=== PATIENT | male | born 1980 | race Caucasian/White ===

== ENCOUNTER → 2016-08-10 | Outpatient (CLI) | payer BC ==
--- NOTE | 2016-08-10 20:53 | MR ---
EXAMINATION TYPE: MR thoracic spine wo con DATE OF EXAM: 08/10/2016 6:47 PM COMPARISON: NONE HISTORY: Pain in thoracic spine for past two, no trauma Standard multiplanar, multisequence MRI departmental protocol Multiplanar, multisequence images of the thoracic spine were acquired. Diffusion weighted imaging was performed. FINDINGS: Alignment is anatomic. There is disc desiccation at T7-T8, T8-T9 and T9-T10. At T7-T8 there is a right paracentral focal disc herniation which results in anterior compression of the spinal cord. Neural foramina patent. At T8-9 there is a central broad-based disc herniation. This abuts the anterior margin of the spinal cord. Mass effect from the thecal sac does also result in a degree of mass effect on the spinal cord. At T11-T12 there is a right paracentral and lateral disc bulge with right-sided foraminal encroachmen t. No Canal stenosis. At T12-L1 findings are suspicious for left paracentral disc herniation with mass effect on the thecal sac but no spinal cord contact. Mild left-sided foraminal encroachment. Remaining levels demonstrate no evidence of disc herniation or canal stenosis. No abnormal signal within the spinal cord. No compression deformities. IMPRESSION: 1. Focal right paracentral disc herniation T7-T8 with anterior compression of the spinal cord. No ev idence to suggest myelitis. 2. Left paracentral disc herniation T12-L1 with mild thecal sac compression but no spinal cord contac t. 3. Right lateral and paracentral disc bulging T11-T12 with mild right-sided foraminal encroachment. 4. Central disc herniation T8-T9 which abuts the anterior margin of the spinal cord.
== END | disposition home or self-care (01) ==
LOC: RADMRIMAIN 17:38
PROVIDERS: ATTEND Psychiatry & Neurology Neurology
DX: M54.6 Pain in thoracic spine (principal); M51.24 Other intervertebral disc displacement, thoracic region; G95.20 Unspecified cord compression; M51.26 Other intervertebral disc displacement, lumbar region
CPT/HCPCS: 72146

== ENCOUNTER → 2017-10-04 | Outpatient (CLI) | payer BC ==
--- NOTE | 2017-10-07 13:42 | MR ---
EXAMINATION TYPE: MR thoracic spine wo con DATE OF EXAM: 10/04/2017 COMPARISON: 08/10/2016 MRI of the thoracic spine HISTORY: Back Pain x1 year TECHNIQUE: Multiplanar, multisequence images of the thoracic spine were acquired without intravenous contrast. FINDINGS: The vertebral bodies of the thoracic spine maintain normal vertebral body heights and alignment. Thor acic cord maintains normal signal throughout. No epidural fluid collection is seen. Bone marrow signa l is within normal limits. Small Schmorl's nodes are noted as well as degenerative endplate changes a nd multilevel facet arthropathy. At T7-T8 is a similar appearing small right paracentral disc herniation that creates a very mild spin al canal stenosis narrowing the ventral subarachnoid space as seen on the prior of 2016. No neural fo raminal narrowing. Small broad-based disc herniation is also similar to the prior exam at T8-T9. This creates very mild spinal canal stenosis. No neural foraminal narrowing. Disc desiccation is seen at T9-T10 and Schmorl's node formation of the superior endplate of T10. No s ignificant spinal canal stenosis or neural foraminal narrowing. At T11-T12 there remains a small right paracentral and foraminal disc herniation creating moderate ri ght neural foraminal narrowing. No left neural foraminal narrowing or spinal canal stenosis. At T12-L1 there is a small left paracentral broad-based disc bulge without spinal canal stenosis or n eural foraminal narrowing. IMPRESSION: Overall similar exam in comparison to the prior 08/10/2016 with small right paracentral disc herniation at T7-T8 creating mild spinal canal stenosis, small right paracentral disc herniation at T11-T12 cre ating moderate right neuroforaminal narrowing, small broad-based disc bulge at T12-L1, and small broa d-based disc herniation at T8-T9 creating very mild spinal canal stenosis. No new disc herniations an d no significant progression.
== END | disposition home or self-care (01) ==
LOC: RADMRIMAIN 19:44
PROVIDERS: ATTEND Neurological Surgery
DX: M48.04 Spinal stenosis, thoracic region (principal); M99.72 Connective tissue and disc stenosis of intervertebral foramina of thoracic region; M51.25 Other intervertebral disc displacement, thoracolumbar region
CPT/HCPCS: 72146

== ENCOUNTER 2017-12-21 07:48 | Day surgery (SDC) | payer BC ==
[~2017-12-21 07:48] MED LIST: PREMYELOGRAM MEDICATION REVIEW 1 EACH MISC PO NR
[2017-12-21 08:24] VITALS: TEMP 97.6
[2017-12-21] MEDS ORDERED: DIAZEPAM 5 MG TAB PO STA (08:27)
--- NOTE | 2017-12-21 10:25 | FL ---
EXAMINATION TYPE: FL myelogram thoracic DATE OF EXAM: 12/21/2017 9:46 AM HISTORY: Thoracic back pain after trauma TECHNIQUE: 44 seconds of fluoroscopy time was utilized with 1 image saved. Informed consent was obtained and all the patient's questions were answered. Preprocedural timeout wa s performed. The L4-L5 level was localized under fluoroscopy. Standard sterile technique was utilize d as well as appropriate local anesthesia 1% Lidocaine (7 cc). Spinal needle was introduced into the thecal sac under fluoroscopic guidance and 9 mls of Isovue-M 300 was injected. The patient tolerated the procedure well and left the department in stable condition. CT myelography is to follow. IMPRESSION: Successful myelography at the lumbar spine level for subsequent CT thorax.
[2017-12-21 10:49] VITALS: PULSE 87
--- NOTE | 2017-12-21 11:20 | CT ---
EXAMINATION TYPE: CT thoracic spine w con DATE OF EXAM: 12/21/2017 COMPARISON: MRI dated 10/04/2017 of the thoracic spine HISTORY: Thoracic back pain CT DLP: 1067.1 mGycm Automated exposure control for dose reduction was used. CONTRAST: Performed after the intrathecal administration of 9 cc of Omnipaque 300 M. FINDINGS: Although contrast was seen in the thoracic spine on fluoroscopy contrast remains within the lumbosacr al spine on subsequent imaging despite rotating the patient and placing the patient in Trendelenburg. However on evaluation of the images a small amount of thoracic contrast is identified. Vertebral bodies of the thoracic spine demonstrate normal vertebral body heights and alignment. The u pper thoracic disc spaces appear unremarkable without spinal canal stenosis or neuroforaminal narrowi ng. There is a left eccentric broad-based disc bulge seen at C6-C7 without spinal canal stenosis or neura l foraminal narrowing. At T7-T8 there is a similar appearing right small paracentral disc herniation creating very mild spin al canal stenosis and very mild neural foraminal narrowing. At T11-T12 the previously seen small right paracentral disc herniation and foraminal disc herniation creating moderate right neural foraminal narrowing is less conspicuous. At T12-L1 there is a broad-based disc bulge without spinal canal stenosis or neural foraminal narrowi ng. At L1-L2 there is a very small broad-based disc bulge without spinal canal stenosis or neuroforaminal narrowing. Similarly at L2-L3 and L3-L4 there are small broad-based disc bulge resulting in very mild neural for aminal narrowing without spinal canal stenosis. L5-S1 demonstrates no significant neural foraminal na rrowing or spinal canal stenosis. IMPRESSION: 1. Similar-appearing small right paracentral disc herniation at T7-T8 creating very mild spinal canal stenosis and very mild neural foraminal narrowing. 2. Left eccentric broad-based disc bulge at C6-C7 without spinal canal stenosis or neural foraminal n arrowing. 3. The previously seen T11-T12 small right paracentral disc herniation creating moderate right neural foraminal narrowing is redemonstrated but less conspicuous than on the prior MR dated 10/04/2017. 4. Mild multilevel degenerative disc disease throughout the lumbar spine without spinal canal stenosi s.
[2017-12-21 12:05] VITALS: RESP 18
[2017-12-21 14:04] VITALS: BP 115/77
== END 2017-12-21 13:55 | disposition home or self-care (01) ==
LOC: RADPROMAIN 07:48
PROVIDERS: ATTEND Neurological Surgery
DX: M51.24 Other intervertebral disc displacement, thoracic region (principal); M48.04 Spinal stenosis, thoracic region; M50.223 Other cervical disc displacement at C6-C7 level; M51.36 Other intervertebral disc degeneration, lumbar region
CPT/HCPCS: 62303; 72129; J2001; Q9967

== ENCOUNTER 2017-12-22 06:46 | Emergency (ER) | payer BC ==
[2017-12-22] MEDS ORDERED: SODIUM CHLORIDE 0.9% 1,000 ML IV STA (07:07)
[2017-12-22] MEDS ORDERED: METOCLOPRAMIDE 5 MG/ML 2 ML VIAL IVP STA (07:13)
--- NOTE | 2017-12-22 07:17 | ED ---
General Adult HPI - General Chief complaint: Headache Stated complaint: headache Source: patient, family Mode of arrival: ambulatory Limitations: no limitations - History of Present Illness Initial comments: Dictation was produced using [employer] dictation software. please excuse any grammatical, word or spelling errors. Chief Complaint: 37-year-old male past medical history of chronic back pain presents with headache after myelogram yesterday. History of Present Illness: Patient states that yesterday he had a myelogram procedure performed. After the procedure he felt relatively well. He went home however began to have symptoms of headache. Patient states that his headache is worse with sitting up and alleviated with lying down. He is also having some nausea and vomiting. Patient was counseled yesterday told that he may need a patch if he develops worsening headache. Denies any constitutional symptoms. The ROS documented in this emergency department record has been reviewed and confirmed by me. Those systems with pertinent positive or negative responses have been documented in the HPI. All other systems are other negative and/or noncontributory. - Related Data Home Medications Medication Instructions Recorded Confirmed traMADol HCL [Ultram] 50 mg PO Q4HR PRN 12/17/17 12/22/17 Allergies Allergy/AdvReac Type Severity Reaction Status Date / Time No Known Allergies Allergy Verified 12/22/17 06:58 Review of Systems ROS Statement: Those systems with pertinent positive or pertinent negative responses have been documented in the HPI. ROS Other: All systems not noted in ROS Statement are negative. Past Medical History Past Medical History: No Reported History Additional Past Medical History / Comment(s): mid back pain x2 years. only has had MRI and phyiscal therapy for back thus far. History of Any Multi-Drug Resistant Organisms: None Reported Past Surgical History: No Surgical Hx Reported Additional Past Surgical History / Comment(s): PICC line placed for dental abscess -2007 Additional Past Anesthesia/Blood Transfusion Reaction / Comment(s): never had Past Psychological History: No Psychological Hx Reported Smoking Status: Current every day smoker Past Alcohol Use History: None Reported Past Drug Use History: None Reported - Past Family History Father Family Medical History: No Reported History General Exam - General Exam Comments Initial Comments: PHYSICAL EXAM: General Impression: Alert and oriented x3, acute distress secondary to pain HEENT: Normocephalic atraumatic, extra-ocular movements intact, pupils equal and reactive to light bilaterally, mucous membranes moist. Cardiovascular: Heart regular rate and rhythm, S1&S2 audible, no murmurs, rubs or gallops Chest: Lungs clear to auscultation bilaterally, no rhonchi, no wheeze, no rales Abdomen: Bowel sounds present, abdomen soft, non-tender, non-distended, no organomegaly Musculoskeletal: Pulses present and equal in all extremities, no peripheral edema Motor: Power 5/5 bilaterally, no focal deficits noted Neurological: CN II-XII grossly intact, no focal motor or sensory deficits noted Skin: Intact with no visualized rashes, lower back appears atraumatic, no mass or signs of infection to the lumbar puncture site Psych: Normal affect and mood Limitations: no limitations Course Vital Signs 12/22/17 12/22/17 12/22/17 06:55 07:53 07:54 Temperature 97.7 F Pulse Rate 62 57 L Respiratory 20 16 Rate Blood Pressure 112/67 O2 Sat by Pulse 100 100 Oximetry Medical Decision Making - Medical Decision Making ED course: 37-year-old male who presents with clinical presentation consistent with post-lumbar puncture headache. Vital signs upon arrival are within acceptable limits. Physical examination shows male in acute distress. No neurologic deficits. Physical examination is otherwise nonfocal. Patient was given intravenous fluids, Tylenol and Reglan. Anesthesia was consulted to perform blood patch. She was obtained from patient. Reports that there was some difficulties with the procedure yesterday with injecting enough contrast to get adequate films of the thoracic area. It is highly likely that patient's symptoms are secondary to post lumbar puncture. Anesthesia performed blood patch at bedside. Patient tolerated procedure well. Consultation on post- lumbar puncture headache. He is advised to lie flat and slowly increase his activity levels. Advised to take Tylenol at home for when necessary pain symptoms. Instructed to follow-up with primary care physician upon discharge. he is understandable and agreeable. Disposition Clinical Impression: Spinal puncture headache Disposition: HOME SELF-CARE Condition: Fair Instructions: Acute Headache (ED) Is patient prescribed a controlled substance at d/c from ED?: No Referrals: None,Stated [Primary Care Provider] - 1-2 days Time of Disposition: 08:57
[2017-12-22] MEDS ORDERED: ACETAMINOPHEN TAB 500 MG TAB PO STA (07:36)
[2017-12-22 07:53] VITALS: RESP 16
--- NOTE | 2017-12-22 08:44 | P.PAINCN ---
History of Present Illness - Reason for Consult Consult date: 12/22/17 - History of Present Illness 37-year-old male who presents to the emergency department at [facility] with complaints of a positional headache. 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 Patient states over the course of 24 hours she's noticed headache that was worsened with upright position and improved with lying flat, also states that he had some nausea, and 2 episodes of vomiting. Patient also admits to having some nuchal rigidity. With regards to the headache he describes it as a bifrontal headache significant only worst with sitting up and improved somewhat stimulating when lying flat. I discussed with the patient potential of doing an epidural blood patch, I discussed the risks and benefits of doing the procedure the patient agreed to proceed with doing so over conservative therapy. Review of systems: 14 point review of systems negative except as mentioned in HPI Physical exam: General: Mildly distressed in the upright position HEENT: Normocephalic atraumatic Cardiovascular: Regular rate and rhythm, no murmurs Respiratory: Nonlabored respirations, no wheezing Muscular skeletal: No motor deficits in either upper or lower extremities. Neurological: No focal deficits appreciated, no sensory deficits Psychiatric: Normal mood and affect Assessment: 1. Posterior puncture headache Plan: 1. Epidural blood patch, risks and benefits explained which include infection, bleeding, and accidental dural puncture, consent signed. All questions answered. Past Medical History Past Medical History: No Reported History Additional Past Medical History / Comment(s): mid back pain x2 years. only has had MRI and phyiscal therapy for back thus far. History of Any Multi-Drug Resistant Organisms: None Reported Past Surgical History: No Surgical Hx Reported Additional Past Surgical History / Comment(s): PICC line placed for dental abscess -2007 Additional Past Anesthesia/Blood Transfusion Reaction / Comm: never had Past Psychological History: No Psychological Hx Reported Smoking Status: Current every day smoker Past Alcohol Use History: None Reported Past Drug Use History: None Reported - Past Family History Father Family Medical History: No Reported History Medications and Allergies Home Medications Medication Instructions Recorded Confirmed Type traMADol HCL [Ultram] 50 mg PO Q4HR PRN 12/17/17 12/22/17 History Allergies Allergy/AdvReac Type Severity Reaction Status Date / Time No Known Allergies Allergy Verified 12/22/17 06:58 Physical Exam Vitals: Vital Signs Temp Pulse Resp BP Pulse Ox 12/22/17 07:54 112/67 12/22/17 07:53 57 L 16 100 12/22/17 06:55 97.7 F 62 20 100 Intake and Output 12/21/17 12/22/17 12/22/17 22:59 06:59 14:59 Other: Weight 74.843 kg PQRS Measure Charge Sheet PQRS Narrative: Smoking Status Current every day smoker Blood Pressure 112/67 Pain Intensity 10 Scale Used Numeric (1 - 10) Home Medications: Ambulatory Orders traMADol HCL [Ultram] 50 mg PO Q4HR PRN 12/17/17
[2017-12-22 09:16] VITALS: BP 115/70; PULSE 78; TEMP 97.8
== END 2017-12-22 09:14 | disposition home or self-care (01) ==
LOC: EC 06:46
DX: G97.1 Other reaction to spinal and lumbar puncture (principal); F17.200 Nicotine dependence, unspecified, uncomplicated; Z87.39 Personal history of other diseases of the musculoskeletal system and connective tissue
CPT/HCPCS: 99284; 62273; 96374; 96361; J2765

== ENCOUNTER 2017-12-23 15:49 | Emergency (ER) | payer BC ==
[2017-12-23] MEDS ORDERED: LIDOCAINE 2% INJ 20 MG/ML (20 ML MDV) IV STA (16:11)
[2017-12-23] MEDS ORDERED: SODIUM CHLORIDE 0.9% 1,000 ML IV ONE (16:15)
[2017-12-23] MEDS ORDERED: ONDANSETRON 4 MG/2 ML VIAL IVP STA ×2 (16:15→17:50)
[2017-12-23 16:40] LABS: Basophils % (A) 0 %; Eosinophils # (A) 0.1 k/uL (0-0.7); Eosinophils % (A) 1 %; HCT 46.5 % (39.0-53.0); HGB 15.8 gm/dL (13.0-17.5); Lymphocytes # (A) 1.3 k/uL (1.0-4.8); Lymphocytes % (A) 18 %; MCV 91.1 fL (80.0-100.0); Mean Platelet Volume 6.8; Monocytes # (A) 0.5 k/uL (0-1.0); Monocytes % (A) 7 %; Neutrophils # (A) 5.4 k/uL (1.3-7.7); Neutrophils % (A) 73 %; Platelet Count 366 k/uL (150-450); RBC 5.11 m/uL (4.30-5.90); RDW 12.5 % (11.5-15.5); WBC 7.4 k/uL (3.8-10.6)
[2017-12-23 16:46] LABS: INR 1.1 (<1.2); Prothrombin Time 10.8 sec (9.0-12.0)
[2017-12-23 16:58] LABS: Anion Gap 11 mmol/L; Blood Urea Nitrogen 7 mg/dL (9-20); Calcium 10.3 mg/dL (8.4-10.2); Carbon Dioxide 20 mmol/L (22-30); Chloride 111 mmol/L (98-107); Glucose 110 mg/dL (74-99); Sodium 142 mmol/L (137-145)
[2017-12-23] MEDS ORDERED: .ACETAMINOPHEN IV (PEDS) 1,000 MG in EMPTY BAG 1 BAG IV STA (17:42)
[2017-12-23 19:09] VITALS: RESP 18
[2017-12-23 19:55] VITALS: BP 123/77; PULSE 65; TEMP 98.5
[2017-12-23] MEDS ORDERED: ONDANSETRON 4 MG ODT STARTER PACK 2 TAB BTL PO STA (19:56)
--- NOTE | 2017-12-23 19:58 | ED ---
General Adult HPI - General Chief complaint: Headache Stated complaint: Vomiting Time Seen by Provider: 12/23/17 15:56 Source: patient Mode of arrival: ambulatory Limitations: no limitations - History of Present Illness Initial comments: 37-year-old male presenting with headache and vomiting. Patient states that he had a CT myelogram done and after that began to develop severe headache and vomiting. He was seen in the emergency department on 12/22 and had a blood patch placed by pain management. He had improvement of his symptoms for 4 hours but then they returned. He is been unable to tolerate anything by mouth at home secondary to the vomiting and severe headache. He is experiencing a generalized pressure-like headache that radiates down to the lower part of the spine. He denies any focal weakness or numbness. Denies any fevers or chills. Patient states that the myelogram for a possible spinal cyst. - Related Data Home Medications Medication Instructions Recorded Confirmed traMADol HCL [Ultram] 50 mg PO Q4HR PRN 12/17/17 12/22/17 Allergies Allergy/AdvReac Type Severity Reaction Status Date / Time No Known Allergies Allergy Verified 12/22/17 06:58 Review of Systems ROS Statement: Those systems with pertinent positive or pertinent negative responses have been documented in the HPI. Review of Systems Constitutional: Denies fever, chills Eyes: Denies change in vision, Denies pain Ears, nose, mouth, throat: Positive headaches, Denies sore throat Cardiovascular: Denies chest pain. Denies palpitations Respiratory: Denies shortness of breath, Denies cough Gastrointestinal: Denies abdominal pain. Positive nausea, vomiting. negative diarrhea. Genitourinary: Denies hematuria, Denies infections Musculoskeletal: Denies pain, Denies swelling Integumentary: Denies rash Neurological: Positive headache, focal weakness, focal numbness Psychiatric: Denies anxiety, Denies depression Hematologic/Lymphatic: Denies easy bleeding or bruising ROS Other: All systems not noted in ROS Statement are negative. Past Medical History Past Medical History: No Reported History Additional Past Medical History / Comment(s): mid back pain x2 years. only has had MRI and phyiscal therapy for back thus far. History of Any Multi-Drug Resistant Organisms: None Reported Past Surgical History: No Surgical Hx Reported Additional Past Surgical History / Comment(s): PICC line placed for dental abscess -2007 Additional Past Anesthesia/Blood Transfusion Reaction / Comment(s): never had Past Psychological History: No Psychological Hx Reported Smoking Status: Current every day smoker Past Alcohol Use History: None Reported Past Drug Use History: None Reported - Past Family History Father Family Medical History: No Reported History General Exam - General Exam Comments Initial Comments: General: Awake, alert, appears uncomfortable HENT: Normocephalic. Atraumatic. Eyes: PERRL. EOMI. No scleral icterus. No injected conjunctiva Neck: Full ROM Chest/Lungs: Clear to auscultation bilaterally. No wheezing, rhonchi, or rales Cardiac: Regular rate, rhythm. No murmurs or rubs Abdomen/GI: Soft, nontender, nondistended. No rebound, guarding, or rigidity. Musculoskeletal: Full ROM Skin: Warm, dry, intact Neurologic: A/Ox3, no weakness, no sensory deficit, no abnormal gait, no coordination deficit. C5 through T1 intact and symmetric bilaterally. L3 through S1 intact and symmetric bilaterally. LP and blood patch areas non- erythematous with no drainage. No midline cervical, thoracic, lumbar tenderness to palpation. Limitations: no limitations Course Vital Signs 12/23/17 12/23/17 12/23/17 15:51 19:02 19:49 Temperature 97.6 F 98.5 F Pulse Rate 76 62 65 Respiratory 20 18 18 Rate Blood Pressure 109/75 119/73 123/77 O2 Sat by Pulse 100 100 100 Oximetry Medical Decision Making - Medical Decision Making 37-year-old male presenting with headache and nausea and vomiting. Initial exam the patient appears uncomfortable and is actively vomiting. Patient had a blood patch placed yesterday. Patient states these symptoms are similar to the ones he had prior to the blood patch being placed. He sphenopalatine nerve block was done with atomized 2% lidocaine. The patient had some improvement but shortly thereafter had another episode of vomiting. His nausea was controlled with department was Zofran after that. He was given IV Tylenol with improvement of his headache decreased to a 4. The tolerate ice chips and crackers on the department. Patient felt comfortable enough to be discharged home. He was sent with a starter pack for Zofran. Patient stated he has tramadol at home but he was told not to take it for 48 hours after his procedure. Discussed this with the pharmacist at this time does not appear to be any contraindication to tramadol post lumbar puncture. Patient was instructed to take a dose when he gets home to help prevent worsening of his symptoms. He was told to take Zofran as Mónica felt any signs of nausea. Instructed to maintain a bland diet with frequent small sips of fluids.No further emergent workup indicated. The patient was given return to ED instructions. They were instructed to follow up with their primary care provider. Stable for discharge at this time. - Lab Data Result diagrams: 12/23/17 10:29 12/23/17 10:29 Lab Results 12/23/17 12/23/17 12/23/17 Range/Units 10:29 10: 10:29 WBC 7.4 (3.8-10.6) k/uL RBC 5.11 (4.30-5.90) m/uL Hgb 15.8 (13.0-17.5) gm/dL Hct 46.5 (39.0-53.0) % MCV 91.1 (80.0-100.0) fL MCH 31.0 (25.0-35.0) pg MCHC 34.0 (31.0-37.0) g/dL RDW 12.5 (11.5-15.5) % Plt Count 366 (150-450) k/uL Neutrophils % 73 % Lymphocytes % 18 % Monocytes % 7 % Eosinophils % 1 % Basophils % 0 % Neutrophils # 5.4 (1.3-7.7) k/uL Lymphocytes # 1.3 (1.0-4.8) k/uL Monocytes # 0.5 (0-1.0) k/uL Eosinophils # 0.1 (0-0.7) k/uL Basophils # 0.0 (0-0.2) k/uL PT 10.8 (9.0-12.0) sec INR 1.1 (<1.2) Sodium 142 (137-145) mmol/L Potassium 4.0 (3.5-5.1) mmol/L Chloride 111 H (98-107) mmol/L Carbon Dioxide 20 L (22-30) mmol/L Anion Gap 11 mmol/L BUN 7 L (9-20) mg/dL Creatinine 0.90 (0.66-1.25) mg/dL Est GFR (CKD-EPI)AfAm >90 (>60 ml/min/1.73 sqM) Est GFR (CKD-EPI)NonAf >90 (>60 ml/min/1.73 sqM) Glucose 110 H (74-99) mg/dL Calcium 10.3 H (8.4-10.2) mg/dL Disposition Clinical Impression: Headache, post-lumbar puncture Disposition: HOME SELF-CARE Condition: Good Instructions: *Surgery [facility] - Lumbar Puncture Discharge Instructions, Acute Headache (ED) Additional Instructions: Take Tramadol when you get home. Eat small amounts of bland food tonight and take frequent small sips of fluids. Drink a caffeine beverage in the morning. Return if symptoms worsen. Is patient prescribed a controlled substance at d/c from ED?: No Referrals: Jonah Goldsmith MD [Medical Doctor] - 1-2 days
--- NOTE | 2017-12-25 06:57 | CDI ---
Dear Nadege Velázquez DO: Please do addendum the anatomical laterality for the sphenopalatine nerve block procedure. Thank you, Juliette Gomez, Eligibility Services Representative. If you have any questions, please contact [facility] [employer] [employer] at [phone]. [email or web address]
== END 2017-12-23 20:20 | disposition home or self-care (01) ==
LOC: EC 15:49
DX: G97.1 Other reaction to spinal and lumbar puncture (principal); F17.200 Nicotine dependence, unspecified, uncomplicated; Z87.39 Personal history of other diseases of the musculoskeletal system and connective tissue
CPT/HCPCS: 99284; 64505; 96365; 96375; 96376; 96361 ×2; 36415; 80048; 85025; 85610; J2001; J2405; J0131; S0119

== ENCOUNTER 2017-12-25 13:27 | Observation (INO) | payer BC ==
[2017-12-25] MEDS ORDERED: diphenhydrAMINE 50 MG/ML 1 ML VIAL IVP STA (14:04)
[2017-12-25] MEDS ORDERED: SODIUM CHLORIDE 0.9% 1,000 ML IV ONE (14:04)
[2017-12-25] MEDS ORDERED: METOCLOPRAMIDE 5 MG/ML 2 ML VIAL IVP STA (14:04)
[2017-12-25] MEDS ORDERED: KETOROLAC 30 MG/ML 1 ML VIAL IVP STA (14:04)
[2017-12-25] MEDS ORDERED: CAFFEINE-SODIUM BENZOATE 1,000 MG in SODIUM CHLORIDE 0.9% 1,000 ML IVPB ONE (14:04)
--- NOTE | 2017-12-25 14:58 | ED ---
General Adult HPI - General Chief complaint: Headache Stated complaint: Vomiting Time Seen by Provider: 12/25/17 13:52 Source: patient, family, RN notes reviewed Mode of arrival: ambulatory Limitations: no limitations - History of Present Illness Initial comments: This a 37-year-old male presents emergency Department with chief complaint of persistent headache and vomiting. Patient states that he had a myelogram performed on Sunday and a blood patch on Sunday. He states he had about 4 hours a relief. Patient states that he was seen again in emergency department for vomiting was given medications. Patient states that he has contacted here who performed the procedure along with his surgeon and PCP who referred him to the ER. Patient states that the procedure was performed here. Patient denies any fever but states that he's been having night sweats and concerned about possible infection. Patient denies any abdominal pain but states that he cannot stop vomiting. Denies any chest pain or shortness breath. Patient states this was performed secondary to ongoing issues in his thoracic spine. Patient states the headache is positional. Patient states that he only gets a slight relief when he lays on his back right side. - Related Data Home Medications Medication Instructions Recorded Confirmed traMADol HCL [Ultram] 50 mg PO Q4HR PRN 12/17/17 12/25/17 Allergies Allergy/AdvReac Type Severity Reaction Status Date / Time No Known Allergies Allergy Verified 12/25/17 13:56 Review of Systems ROS Statement: Those systems with pertinent positive or pertinent negative responses have been documented in the HPI. ROS Other: All systems not noted in ROS Statement are negative. Past Medical History Past Medical History: No Reported History Additional Past Medical History / Comment(s): mid back pain x2 years. only has had MRI and phyiscal therapy for back thus far. History of Any Multi-Drug Resistant Organisms: None Reported Past Surgical History: No Surgical Hx Reported Additional Past Surgical History / Comment(s): PICC line placed for dental abscess -2007, myleogram Additional Past Anesthesia/Blood Transfusion Reaction / Comment(s): never had Past Psychological History: No Psychological Hx Reported Smoking Status: Current every day smoker Past Alcohol Use History: None Reported Past Drug Use History: None Reported - Past Family History Father Family Medical History: No Reported History General Exam Limitations: no limitations General appearance: alert, in no apparent distress Head exam: Present: atraumatic, normocephalic, normal inspection Eye exam: Present: normal appearance, PERRL, EOMI. Absent: scleral icterus, conjunctival injection, periorbital swelling Neck exam: Present: normal inspection, full ROM. Absent: tenderness, meningismus, lymphadenopathy Respiratory exam: Present: normal lung sounds bilaterally. Absent: respiratory distress, wheezes, rales, rhonchi, stridor Cardiovascular Exam: Present: regular rate, normal rhythm, normal heart sounds. Absent: systolic murmur, diastolic murmur, rubs, gallop, clicks GI/Abdominal exam: Present: soft, normal bowel sounds. Absent: distended, tenderness, guarding, rebound, rigid Neurological exam: Present: alert, oriented X3, CN II-XII intact, reflexes normal. Absent: motor sensory deficit Course Vital Signs 12/25/17 13:32 Temperature 98.1 F Pulse Rate 69 Respiratory 18 Rate Blood Pressure 115/73 O2 Sat by Pulse 99 Oximetry Medical Decision Making - Medical Decision Making 37-year-old male presented to the emergency room for persistent headache and nausea vomiting. Patient is a recent blood patch. Patient repeat lab work is no signs of infectious causes time. Patient will be admitted for further evaluation - Lab Data Result diagrams: 12/25/17 14:30 12/25/17 14:30 Lab Results 12/25/17 12/25/17 12/25/17 Range/Units 14:30 14:30 14:30 WBC 7.1 (3.8-10.6) k/uL RBC 4.98 (4.30-5.90) m/uL Hgb 15.5 (13.0-17.5) gm/dL Hct 45.4 (39.0-53.0) % MCV 91.1 (80.0-100.0) fL MCH 31.1 (25.0-35.0) pg MCHC 34.1 (31.0-37.0) g/dL RDW 12.5 (11.5-15.5) % Plt Count 361 (150-450) k/uL Sodium 141 (137-145) mmol/L Potassium 4.1 (3.5-5.1) mmol/L Chloride 107 (98-107) mmol/L Carbon Dioxide 24 (22-30) mmol/L Anion Gap 10 mmol/L BUN 12 (9-20) mg/dL Creatinine 0.90 (0.66-1.25) mg/dL Est GFR (CKD-EPI)AfAm >90 (>60 ml/min/1.73 sqM) Est GFR (CKD-EPI)NonAf >90 (>60 ml/min/1.73 sqM) Glucose 88 (74-99) mg/dL Plasma Lactic Acid Willie 1.0 (0.7-2.0) mmol/L Calcium 10.0 (8.4-10.2) mg/dL Total Bilirubin 0.6 (0.2-1.3) mg/dL AST 23 (17-59) U/L ALT 31 (21-72) U/L Alkaline Phosphatase 42 (38-126) U/L C-Reactive Protein <5.0 (<10.0) mg/L Total Protein 6.9 (6.3-8.2) g/dL Albumin 4.3 (3.5-5.0) g/dL Disposition Clinical Impression: Intractable headache, Nausea & vomiting Disposition: ADMITTED IP TO THIS [facility] Condition: Stable Referrals: Fany Barahona MD [Primary Care Provider] - 1-2 days
[2017-12-25 15:05] LABS: ALT 31 U/L (21-72); AST 23 U/L (17-59); Albumin 4.3 g/dL (3.5-5.0); Alkaline Phosphatase 42 U/L (38-126); Anion Gap 10 mmol/L; Blood Urea Nitrogen 12 mg/dL (9-20); C Reactive Protein <5.0 mg/L (<10.0); Carbon Dioxide 24 mmol/L (22-30); Chloride 107 mmol/L (98-107); Glucose 88 mg/dL (74-99); Potassium 4.1 mmol/L (3.5-5.1); Sodium 141 mmol/L (137-145); Total Bilirubin 0.6 mg/dL (0.2-1.3); Total Protein 6.9 g/dL (6.3-8.2)
[2017-12-25 15:24] LABS: Basophils % (A) 1 %; Eosinophils # (A) 0.1 k/uL (0-0.7); Eosinophils % (A) 1 %; HCT 45.4 % (39.0-53.0); HGB 15.5 gm/dL (13.0-17.5); Lymphocytes # (A) 1.5 k/uL (1.0-4.8); Lymphocytes % (A) 21 %; MCH 31.1 pg (25.0-35.0); MCHC 34.1 g/dL (31.0-37.0); MCV 91.1 fL (80.0-100.0); Mean Platelet Volume 7.4; Monocytes # (A) 0.7 k/uL (0-1.0); Monocytes % (A) 9 %; Neutrophils # (A) 4.7 k/uL (1.3-7.7); Neutrophils % (A) 67 %; Platelet Count 361 k/uL (150-450); RBC 4.98 m/uL (4.30-5.90); RDW 12.5 % (11.5-15.5); WBC 7.1 k/uL (3.8-10.6)
[2017-12-25] MEDS ORDERED: MORPHINE SULFATE 4 MG/ML SYRINGE IV PRN (15:32)
[2017-12-25] MEDS ORDERED: ACETAMINOPHEN TAB 325 MG TAB PO PRN (15:32)
[2017-12-25] MEDS ORDERED: LORazepam 2 MG/ML INJ IV PRN (15:32)
[2017-12-25] MEDS ORDERED: HYDROcodone/APAP 5-325MG 1 EACH TAB PO PRN (15:32)
[2017-12-25] MEDS ORDERED: ONDANSETRON 4 MG/2 ML VIAL IVP PRN (15:32)
[2017-12-25] MEDS ORDERED: KETOROLAC 30 MG/ML 1 ML VIAL IVP PRN (15:32)
[2017-12-25] MEDS ORDERED: NALOXONE 0.4 MG/ML 1 ML VIAL IV PRN (15:32)
[2017-12-25 16:08] LABS: Erythrocyte Sedimentation Rate 5 mm/hr (0-15)
[2017-12-25] MEDS: SODIUM CHLORIDE 0.9% 1,000 ML IV SCH (18:11)
[2017-12-25 23:59] VITALS: RESP 18
[2017-12-26] MEDS: SODIUM CHLORIDE 0.9% 1,000 ML IV SCH (05:11)
[2017-12-26 06:34] VITALS: BP 111/72; PULSE 53; TEMP 98.7
--- NOTE | 2017-12-26 16:42 | P.HPIM ---
History of Present Illness 37-year-old male presents emergency Department with chief complaint of persistent headache and vomiting. Patient states that he had a myelogram performed on Sunday and a blood patch on Sunday. He states he had about 4 hours a relief. Patient states that he was seen again in emergency department for vomiting was given medications. Patient states that he has contacted here who performed the procedure along with his surgeon and PCP who referred him to the ER. Patient states that the procedure was performed here. Patient denies any fever but states that he's been having night sweats and concerned about possible infection. Patient denies any abdominal pain but states that he cannot stop vomiting. Denies any chest pain or shortness breath. Patient states this was performed secondary to ongoing issues in his thoracic spine. Patient states the headache is positional. Patient states that he only gets a slight relief when he lays on his back right side. Patient is clinically doing well today headache significant improved no nausea vomiting patient was asked to take Tylenol on as-needed basis does have tramadol at home. If patient takes another NSAID he was asked to take low-dose and also use Zantac for GI prophylaxis if uses Advil. Patient is otherwise clinically doing well does have chronic back issues for which she will follow with Dr. Guadrado as an outpatient Review of Systems REVIEW OF SYSTEMS: CONSTITUTIONAL: No fever, no malaise, no fatigue. HEENT: No recent visual problems or hearing problems. Denied any sore throat. CARDIOVASCULAR: No chest pain, orthopnea, PND, no palpitations, no syncope. PULMONARY: No shortness of breath, no cough, no hemoptysis. GASTROINTESTINAL: No diarrhea, no nausea, no vomiting, no abdominal pain. Normoactive bowel sounds. NEUROLOGICAL: no weakness, no numbness. HEMATOLOGICAL: Denies any bleeding or petechiae. GENITOURINARY: Denies any burning micturition, frequency, or urgency. MUSCULOSKELETAL/RHEUMATOLOGICAL: Denies any joint pain, swelling, or any muscle pain. ENDOCRINE: Denies any polyuria or polydipsia. The rest of the 14-point review of systems is negative. Past Medical History Past Medical History: No Reported History Additional Past Medical History / Comment(s): mid back pain x2 years. only has had MRI and phyiscal therapy for back thus far. History of Any Multi-Drug Resistant Organisms: None Reported Past Surgical History: No Surgical Hx Reported Additional Past Surgical History / Comment(s): PICC line placed for dental abscess -2007, myleogram 12-21-17 and sat 12-22-17 blood patch done Additional Past Anesthesia/Blood Transfusion Reaction / Comment(s): never had Smoking Status: Current every day smoker - Past Family History Father Family Medical History: No Reported History Mother Additional Family Medical History / Comment(s): brain anuerysm Medications and Allergies Home Medications Medication Instructions Recorded Confirmed Type traMADol HCL [Ultram] 50 mg PO Q4HR PRN 12/17/17 12/25/17 History Ondansetron Odt [Zofran Odt] 4 mg PO Q8HR PRN #20 tab 12/26/17 Rx Allergies Allergy/AdvReac Type Severity Reaction Status Date / Time No Known Allergies Allergy Verified 12/25/17 13:56 Physical Exam Vitals: Vital Signs Temp Pulse Pulse Resp BP BP Pulse Ox 12/26/17 06:33 98.7 F 53 L 18 111/72 99 12/25/17 23:00 98.0 F 54 L 18 123/69 98 12/25/17 17:57 98.5 F 60 16 133/77 100 12/25/17 17:48 98.3 F 62 16 125/71 100 Intake and Output 12/26/17 12/26/17 12/26/17 06:59 14:59 22:59 Other: Voiding Method Toilet # Voids 1 Results CBC & Chem 7: 12/25/17 14:30 12/25/17 14:30 Thrombosis Risk Factor Assmnt - Choose All That Apply Any of the Below Risk Factors Present?: No Other Risk Factors: No Other congenital or acquired thrombophilia - If yes, enter type in comment: No Thrombosis Risk Factor Assessment Level: Very Low Risk Assessment and Plan Plan: -Headache spinal headache patient already had a blood patch patient can use an assays and Tylenol for headache and will be discharged today. -Chronic low back pain with the spinal stenosis. -Nicotine use: Counseling was provided
== END 2017-12-26 13:02 | disposition home or self-care (01) ==
LOC: EC 13:27 → 4MS4W 15:59
PROVIDERS: ADMIT Internal Medicine; ATTEND Internal Medicine
DX: G97.1 Other reaction to spinal and lumbar puncture (principal); R51 Headache; R11.2 Nausea with vomiting, unspecified; Y84.4 Aspiration of fluid as the cause of abnormal reaction of the patient, or of later complication, without mention of misadventure at the time of the procedure; M48.00 Spinal stenosis, site unspecified; G89.29 Other chronic pain; M54.5 Low back pain; M54.6 Pain in thoracic spine; R61 Generalized hyperhidrosis; F17.200 Nicotine dependence, unspecified, uncomplicated; Z82.49 Family history of ischemic heart disease and other diseases of the circulatory system
CPT/HCPCS: 99284 ×2; 96365 ×2; 96366 ×2; 96375 ×3; 96376; 36415; 80053; 85652; 83605; 85025; 86140; 87040; G0378 ×2; J1200; J2765; J1885 ×2

== ENCOUNTER → 2024-01-17 | Outpatient (CLI) | payer OTHER ==
--- NOTE | 2024-02-19 08:41 | XR ---
Site ID [facility] Patient Loraine Odell ID [id number] Order # Procedure XR chest 2V EXAMINATION TYPE: XR chest 2V DATE OF EXAM: 01/17/2024 5:01 PM CLINICAL INDICATION: Pain COMPARISON: THIS EXAM WAS READ DURING PACS DOWNTIME, NO PRIORS AVAILABLE. TECHNIQUE: XR chest 2V Frontal view of the chest. FINDINGS: Lungs/Pleura: There is no evidence of pleural effusion, focal consolidation, or pneumothorax. Pulmonary vascularity: Unremarkable. Heart/mediastinum: Cardiomediastinal silhouette is unremarkable. Musculoskeletal: No acute osseous pathology. Other findings: None Lines/Tubes: IMPRESSION: No acute cardiopulmonary disease/process.
--- NOTE | 2024-02-19 08:41 | XR ---
Site ID synapse default Patient Loraine Odell ID [id number] Order # Procedure XR RIBS (RT) EXAMINATION TYPE: XR ribs RT DATE OF EXAM: 01/17/2024 5:06 PM CLINICAL INDICATION: 529.001D Costochondral pain at anterior lower rib attachment COMPARISON: THIS EXAM WAS READ DURING PACS DOWNTIME, NO PRIORS AVAILABLE. TECHNIQUE: XR ribs RT; Frontal and oblique views of the ribs with frontal chest radiograph. FINDINGS: The ribs have a normal appearance. No evidence of fracture. Overall, the lungs are clear. The cardiac silhouette is normal in size. The remaining osseous structures are intact. IMPRESSION: No acute osseous pathology.
== END | disposition home or self-care (01) ==
LOC: RADXRMAIN 14:30
PROVIDERS: ATTEND Emergency Medicine
DX: S29.001D Unspecified injury of muscle and tendon of front wall of thorax, subsequent encounter (principal)
CPT/HCPCS: 71046